=== PATIENT | female | born 1960 | race Caucasian/White ===

== ENCOUNTER 2024-04-06 19:40 | Inpatient (IN) | payer MEDICARE ==
[~2024-04-06] VITALS: Ht 170.2 cm; Wt 73.5 kg
[2024-04-06 20:15] LABS: BASOPHILS % (AUTO) 0.1 % (0.0-2.0); EOSINOPHILS % (AUTO) 0.2 % (0.0-7.0); HEMATOCRIT 45.8 % (31.2-41.9); HEMOGLOBIN 15.4 g/dL (10.9-14.3); LYMPHOCYTES # (AUTO) 0.7 K/uL (0.8-4.8); LYMPHOCYTES % (AUTO) 4.9 % (20.5-51.5); MEAN CORPUSCULAR HEMOGLOBIN 28.4 uug (24.7-32.8); MEAN CORPUSCULAR HGB CONC 34 g/dL (32.3-35.6); MEAN CORPUSCULAR VOLUME 84.3 fL (75.5-95.3); MONOCYTES # (AUTO) 0.4 K/uL (0.1-1.30); MONOCYTES % (AUTO) 2.6 % (0.0-11.0); NEUTROPHILS # (AUTO) 12.6 K/uL (1.8-8.9); NEUTROPHILS % (AUTO) 92.2 % (38.5-71.5); PLATELET COUNT (AUTO) 373 K/uL (179-408); RED BLOOD CELL COUNT(AUTO) 5.43 MIL/uL (3.63-4.92); RED CELL DISTRIBUTION WIDTH 14.1 % (12.3-17.7); WHITE BLOOD COUNT (AUTO) 13.7 K/uL (3.8-11.8)
[2024-04-06 20:16] LABS: DIFFERENTIAL COMMENT 1
[2024-04-06 20:25] LABS: CREATININE 4.2 mg/dL (0.6-1.3)
[2024-04-06 20:36] LABS: BILIRUBIN,DIRECT 0.3 mg/dL (0.0-0.2); BILIRUBIN,TOTAL 0.7 mg/dL (0.2-1.0); TOTAL PROTEIN, SERUM 7.3 g/dL (6.4-8.2)
[2024-04-06] MEDS ORDERED: BUPR150T5 PO (21:28)
[2024-04-06] MEDS ORDERED: LEVO100T10 PO (21:28)
[2024-04-06] MEDS ORDERED: ATOR10TA PO (21:28)
[2024-04-06 23:08] VITALS: BP 120/70; TEMP 98.2; O2SAT 92
[2024-04-06] MEDS ORDERED: PIPERACILLIN/TAZO 4.5 GM VIAL IV ONE (23:10)
[2024-04-06] MEDS: PIPERACILLIN SODIUM/TAZOBACTAM 4.5 G in IV DEXTROSE 5% 50 ML IV ONE (23:25)
[2024-04-07] VITALS (27 sets, daily range): BP systolic 79–131; BP diastolic 55–83; TEMP 98–99.5; O2SAT 91–99
[2024-04-07] MEDS ORDERED: REMEDY ESSENTIAL ZINC PASTE 113 GM TP PRN (01:15)
[2024-04-07] MEDS ORDERED: ZOLPIDEM 5 MG TABLET PO PRN (01:15)
[2024-04-07] MEDS ORDERED: ONDANSETRON 4 MG/2 ML VIAL IV PRN (01:15)
[2024-04-07] MEDS ORDERED: MAGNESIUM HYDROXIDE 30 ML LIQUID UDC PO PRN (01:15)
[2024-04-07] MEDS ORDERED: ENOXAPARIN SODIUM 40 MG/0.4 ML DISP.SYRIN SQ SCH (01:15)
[2024-04-07] MEDS: IV NS 1000 ML 1,000 ML IV PRN (01:44)
[2024-04-07] MEDS ORDERED: PIPERACILLIN SODIUM/TAZOBACTAM 3.375 G in IV DEXTROSE 5% 50 ML IV SCH (06:00)
[2024-04-07 07:31] LABS: BASOPHILS % (AUTO) 0.2 % (0.0-2.0); EOSINOPHILS % (AUTO) 0.2 % (0.0-7.0); HEMATOCRIT 43.4 % (31.2-41.9); HEMOGLOBIN 14.5 g/dL (10.9-14.3); LYMPHOCYTES # (AUTO) 0.5 K/uL (0.8-4.8); LYMPHOCYTES % (AUTO) 4.2 % (20.5-51.5); MEAN CORPUSCULAR HEMOGLOBIN 28.2 uug (24.7-32.8); MEAN CORPUSCULAR HGB CONC 33 g/dL (32.3-35.6); MEAN CORPUSCULAR VOLUME 84.3 fL (75.5-95.3); MONOCYTES # (AUTO) 0.4 K/uL (0.1-1.30); NEUTROPHILS # (AUTO) 11.6 K/uL (1.8-8.9); NEUTROPHILS % (AUTO) 92.4 % (38.5-71.5); PLATELET COUNT (AUTO) 341 K/uL (179-408); RED BLOOD CELL COUNT(AUTO) 5.14 MIL/uL (3.63-4.92); RED CELL DISTRIBUTION WIDTH 14.2 % (12.3-17.7); WHITE BLOOD COUNT (AUTO) 12.5 K/uL (3.8-11.8)
[2024-04-07] MEDS ORDERED: ALBUMIN HUMAN 5% 500 ML ONE (07:33)
[2024-04-07] MEDS ORDERED: KETAMINE HCL 500 MG/5 ML VIAL ONE (07:34)
[2024-04-07] MEDS ORDERED: MIDAZOLAM HCL 2 MG/2 ML VIAL ONE (07:34)
[2024-04-07] MEDS ORDERED: FENTANYL CITRATE 100 MCG/2 ML AMPUL ONE (07:34)
[2024-04-07] MEDS ORDERED: ROCURONIUM BROMIDE 50 MG/5 ML VIAL ONE ×2 (07:35)
[2024-04-07 07:40] LABS: DIFFERENTIAL COMMENT 1
[2024-04-07] MEDS ORDERED: VASOPRESSIN 20 UNIT/ML VIAL ONE (07:42)
[2024-04-07 07:51] LABS: ALBUMIN 1.7 g/dL (3.4-5.0); BILIRUBIN,DIRECT 0.2 mg/dL (0.0-0.2); BILIRUBIN,TOTAL 0.6 mg/dL (0.2-1.0); CALCIUM 8.3 mg/dL (8.5-10.1); CREATININE 3.7 mg/dL (0.6-1.3); MAGNESIUM 3.7 mg/dL (1.8-2.4); POTASSIUM 3.8 mmol/L (3.5-5.1); TOTAL PROTEIN, SERUM 6.5 g/dL (6.4-8.2)
[2024-04-07 07:56] LABS: THYROID STIMULATING HORMONE 0.659 mIU/mL (0.358-3.740)
[2024-04-07] MEDS ORDERED: SEVOFLURANE 250 ML BOTTLE ONE (08:02)
[2024-04-07 08:17] LABS: PHOSPHOROUS 8.2 mg/dL (2.5-4.9)
[2024-04-07] MEDS ORDERED: BUPIVACAINE/EPI PF 0.5% 10 ML VIAL ONE (08:23)
[2024-04-07] MEDS ORDERED: LIDOCAINE HCL 1% 20 ML VIAL ONE (08:23)
[2024-04-07] MEDS ORDERED: PROPOFOL 200 MG/20 ML BOTTLE ONE (08:25)
[2024-04-07] MEDS: PANTOPRAZOLE SODIUM 40 MG VIAL IV SCH (09:00)
[2024-04-07] MEDS: PIPERACILLIN SODIUM/TAZOBACTAM 3.375 G in IV DEXTROSE 5% 100 ML IV SCH (09:00)
[2024-04-07] MEDS ORDERED: ALBUMIN HUMAN 5% 250 ML ONE (12:08)
[2024-04-07] MEDS ORDERED: HYDROMORPHONE 1 MG/1 ML DISP.SYRIN ONE (12:54)
[2024-04-07] MEDS: FENTANYL CITRATE 100 MCG/2 ML AMPUL IV ONE (16:13)
[2024-04-07] MEDS: MORPHINE SULFATE 4 MG/1 ML DISP.SYRIN IM PRN (17:58)
[2024-04-07] MEDS: NOREPINEPHRINE BITARTRATE 8 MG in IV NORMAL SALINE 242 ML IV PRN (18:40)
[2024-04-07 22:12] LABS: HEMOGLOBIN 13.9 g/dL (10.9-14.3)
[2024-04-07 22:21] LABS: CREATININE 4.6 mg/dL (0.6-1.3); MAGNESIUM 3.5 mg/dL (1.8-2.4); POTASSIUM 4.7 mmol/L (3.5-5.1)
[2024-04-08] VITALS (69 sets, daily range): BP systolic 66–125; BP diastolic 43–72; TEMP 97.5–101.1; O2SAT 95–99
[2024-04-08] MEDS ORDERED: ENOXAPARIN SODIUM 40 MG/0.4 ML DISP.SYRIN SQ SCH (07:00)
[2024-04-08] MEDS: LEVOTHYROXINE SODIUM 100 MCG TABLET PO SCH (07:00)
[2024-04-08] MEDS: HEPARIN SODIUM,PORCINE 5,000 UNITS/ML VIAL SQ SCH (09:00)
[2024-04-08] MEDS ORDERED: buPROPion SR 150 MG TABLET.SA PO SCH (09:00)
[2024-04-08 10:08] LABS: BASOPHILS % (AUTO) 0.2 % (0.0-2.0); HEMATOCRIT 39.3 % (31.2-41.9); HEMOGLOBIN 12.9 g/dL (10.9-14.3); LYMPHOCYTES # (AUTO) 0.4 K/uL (0.8-4.8); LYMPHOCYTES % (AUTO) 1.7 % (20.5-51.5); MEAN CORPUSCULAR HEMOGLOBIN 28.2 uug (24.7-32.8); MEAN CORPUSCULAR HGB CONC 33 g/dL (32.3-35.6); MONOCYTES # (AUTO) 0.7 K/uL (0.1-1.30); MONOCYTES % (AUTO) 2.7 % (0.0-11.0); NEUTROPHILS # (AUTO) 23.5 K/uL (1.8-8.9); NEUTROPHILS % (AUTO) 95.4 % (38.5-71.5); PLATELET COUNT (AUTO) 338 K/uL (179-408); RED BLOOD CELL COUNT(AUTO) 4.58 MIL/uL (3.63-4.92); RED CELL DISTRIBUTION WIDTH 14.5 % (12.3-17.7); WHITE BLOOD COUNT (AUTO) 24.6 K/uL (3.8-11.8)
[2024-04-08] MEDS ORDERED: MORPHINE SULFATE 4 MG/1 ML DISP.SYRIN IM PRN (10:45)
[2024-04-08 11:32] LABS: ALBUMIN 1.7 g/dL (3.4-5.0); BILIRUBIN,TOTAL 0.6 mg/dL (0.2-1.0); CALCIUM 6.9 mg/dL (8.5-10.1); CREATININE 5.4 mg/dL (0.6-1.3); POTASSIUM 4.9 mmol/L (3.5-5.1); TOTAL PROTEIN, SERUM 5.3 g/dL (6.4-8.2)
[2024-04-08 12:25] LABS: DIFFERENTIAL COMMENT 1
[2024-04-08] MEDS ORDERED: BUPR-53 PO (12:28)
[2024-04-08] MEDS: NOREPINEPHRINE BITARTRATE 32 MG in IV NORMAL SALINE 218 ML IV PRN (15:40)
[2024-04-08] MEDS: ATORVASTATIN 10 MG TABLET PO SCH (21:00)
[2024-04-09] VITALS (80 sets, daily range): BP systolic 79–128; BP diastolic 53–84; TEMP 97.2–98.9; O2SAT 79–100
[2024-04-09] MEDS: MORPHINE SULFATE 2 MG/1 ML DISP.SYRIN IV PRN (01:58)
[2024-04-09 05:11] LABS: BASOPHILS # (AUTO) 0.1 K/UL (0.0-0.2); BASOPHILS % (AUTO) 0.4 % (0.0-2.0); EOSINOPHILS % (AUTO) 0.1 % (0.0-7.0); HEMATOCRIT 31.6 % (31.2-41.9); HEMOGLOBIN 10.2 g/dL (10.9-14.3); LYMPHOCYTES # (AUTO) 0.6 K/uL (0.8-4.8); LYMPHOCYTES % (AUTO) 3.7 % (20.5-51.5); MEAN CORPUSCULAR HGB CONC 32 g/dL (32.3-35.6); MEAN CORPUSCULAR VOLUME 86.3 fL (75.5-95.3); MONOCYTES # (AUTO) 0.6 K/uL (0.1-1.30); MONOCYTES % (AUTO) 3.8 % (0.0-11.0); PLATELET COUNT (AUTO) 216 K/uL (179-408); RED BLOOD CELL COUNT(AUTO) 3.66 MIL/uL (3.63-4.92); WHITE BLOOD COUNT (AUTO) 16.2 K/uL (3.8-11.8)
[2024-04-09 05:46] LABS: BILIRUBIN,TOTAL 0.4 mg/dL (0.2-1.0); CALCIUM 7.1 mg/dL (8.5-10.1); CREATININE 6.2 mg/dL (0.6-1.3); MAGNESIUM 3.8 mg/dL (1.8-2.4); POTASSIUM 5.1 mmol/L (3.5-5.1); TOTAL PROTEIN, SERUM 5.3 g/dL (6.4-8.2)
[2024-04-09 05:49] LABS: ALBUMIN 1.3 g/dL (3.4-5.0); PHOSPHOROUS 11.5 mg/dL (2.5-4.9)
[2024-04-09 06:07] LABS: DIFFERENTIAL COMMENT 1
[2024-04-09] MEDS: buPROPion XL 150 MG TAB.SR.24H PO SCH (08:43)
[2024-04-09] MEDS ORDERED: buPROPion SR 150 MG TABLET.SA PO SCH (09:00)
[2024-04-09] MEDS ORDERED: NOREPINEPHRINE BITARTRATE 8 MG in IV NORMAL SALINE 242 ML IV PRN (13:30)
[2024-04-09] MEDS: SODIUM HYPOCHLORITE 0.25% (HALF STRENGTH) 480 ML BOTTLE TOP SCH (19:13)
[2024-04-09] MEDS: PIPERACILLIN/TAZO 2.25 G in IV DEXTROSE 5% 50 ML IV SCH (21:24)
[2024-04-10] VITALS (42 sets, daily range): BP systolic 86–144; BP diastolic 49–81; TEMP 98.2–98.7; O2SAT 89–99
[2024-04-10 12:12] LABS: HEMATOCRIT 28.9 % (31.2-41.9); HEMOGLOBIN 9.5 g/dL (10.9-14.3); LYMPHOCYTES % (AUTO) 4.5 % (20.5-51.5); MEAN CORPUSCULAR HEMOGLOBIN 27.9 uug (24.7-32.8); MEAN CORPUSCULAR HGB CONC 33 g/dL (32.3-35.6); MEAN CORPUSCULAR VOLUME 85.1 fL (75.5-95.3); NEUTROPHILS % (AUTO) 92.2 % (38.5-71.5); PLATELET COUNT (AUTO) 184 K/uL (179-408); RED CELL DISTRIBUTION WIDTH 14.5 % (12.3-17.7)
[2024-04-10 12:13] LABS: EOSINOPHILS % (AUTO) 0.1 % (0.0-7.0); LYMPHOCYTES # (AUTO) 0.6 K/uL (0.8-4.8); MONOCYTES # (AUTO) 0.4 K/uL (0.1-1.30); MONOCYTES % (AUTO) 3.2 % (0.0-11.0)
[2024-04-10 12:57] LABS: DIFFERENTIAL COMMENT 1
[2024-04-10] MEDS: LEVOTHYROXINE SODIUM 100 MCG VIAL IV SCH (13:00)
[2024-04-10 13:07] LABS: HEPATITIS B SURFACE AB, QUAL Non Reactive (.); HEPATITIS B SURFACE AG Negative (Negative)
[2024-04-10 16:43] LABS: CALCIUM 7.3 mg/dL (8.5-10.1); CREATININE 3.2 mg/dL (0.6-1.3); MAGNESIUM 2.7 mg/dL (1.8-2.4); PHOSPHOROUS 5.9 mg/dL (2.5-4.9); POTASSIUM 3.6 mmol/L (3.5-5.1)
[2024-04-10] MEDS ORDERED: NOREPINEPHRINE BITARTRATE 4 MG/4 ML VIAL IV ONE (20:35)
[2024-04-11] VITALS (39 sets, daily range): BP systolic 95–131; BP diastolic 52–74; TEMP 97.6–99.1; O2SAT 93–100
[2024-04-11 05:12] LABS: BASOPHILS % (AUTO) 0.1 % (0.0-2.0); EOSINOPHILS % (AUTO) 0.2 % (0.0-7.0); HEMATOCRIT 30.8 % (31.2-41.9); HEMOGLOBIN 10.3 g/dL (10.9-14.3); LYMPHOCYTES # (AUTO) 0.5 K/uL (0.8-4.8); LYMPHOCYTES % (AUTO) 4.1 % (20.5-51.5); MEAN CORPUSCULAR HEMOGLOBIN 28.4 uug (24.7-32.8); MEAN CORPUSCULAR HGB CONC 33 g/dL (32.3-35.6); MEAN CORPUSCULAR VOLUME 84.8 fL (75.5-95.3); MONOCYTES # (AUTO) 0.5 K/uL (0.1-1.30); MONOCYTES % (AUTO) 4.2 % (0.0-11.0); NEUTROPHILS # (AUTO) 11.9 K/uL (1.8-8.9); NEUTROPHILS % (AUTO) 91.4 % (38.5-71.5); PLATELET COUNT (AUTO) 159 K/uL (179-408); RED BLOOD CELL COUNT(AUTO) 3.63 MIL/uL (3.63-4.92); RED CELL DISTRIBUTION WIDTH 14.8 % (12.3-17.7)
[2024-04-11 05:16] LABS: CALCIUM 8.2 mg/dL (8.5-10.1); CREATININE 2.7 mg/dL (0.6-1.3); MAGNESIUM 2.3 mg/dL (1.8-2.4); PHOSPHOROUS 3.8 mg/dL (2.5-4.9); POTASSIUM 3.7 mmol/L (3.5-5.1)
[2024-04-11 05:19] LABS: DIFFERENTIAL COMMENT 1
[2024-04-11] MEDS: MORPHINE SULFATE 2 MG/1 ML DISP.SYRIN IV PRN (17:58)
[2024-04-12] VITALS (19 sets, daily range): BP systolic 92–132; BP diastolic 54–82; TEMP 98.8–100.1; O2SAT 90–98
[2024-04-12 05:05] LABS: BASOPHILS % (AUTO) 0.1 % (0.0-2.0); EOSINOPHILS % (AUTO) 0.1 % (0.0-7.0); HEMATOCRIT 29.3 % (31.2-41.9); HEMOGLOBIN 9.6 g/dL (10.9-14.3); LYMPHOCYTES # (AUTO) 0.4 K/uL (0.8-4.8); LYMPHOCYTES % (AUTO) 3.5 % (20.5-51.5); MEAN CORPUSCULAR HGB CONC 33 g/dL (32.3-35.6); MONOCYTES # (AUTO) 0.4 K/uL (0.1-1.30); MONOCYTES % (AUTO) 3.9 % (0.0-11.0); NEUTROPHILS # (AUTO) 10.4 K/uL (1.8-8.9); NEUTROPHILS % (AUTO) 92.4 % (38.5-71.5); PLATELET COUNT (AUTO) 143 K/uL (179-408); RED BLOOD CELL COUNT(AUTO) 3.41 MIL/uL (3.63-4.92); RED CELL DISTRIBUTION WIDTH 14.5 % (12.3-17.7); WHITE BLOOD COUNT (AUTO) 11.2 K/uL (3.8-11.8)
[2024-04-12 05:37] LABS: CALCIUM 7.5 mg/dL (8.5-10.1); CREATININE 3.8 mg/dL (0.6-1.3); MAGNESIUM 2.5 mg/dL (1.8-2.4); PHOSPHOROUS 4.2 mg/dL (2.5-4.9); POTASSIUM 3.3 mmol/L (3.5-5.1)
[2024-04-12 05:46] LABS: DIFFERENTIAL COMMENT 1
[2024-04-12] MEDS: OLANZAPINE 10 MG VIAL IM ONE (12:06)
[2024-04-12] MEDS: OLANZAPINE 10 MG VIAL IM SCH (20:19)
[2024-04-12] MEDS: ACETAMINOPHEN 650 MG SUPP.RECT RC PRN (23:24)
[2024-04-12] MEDS: MORPHINE SULFATE 2 MG/1 ML DISP.SYRIN IV PRN (23:32)
[2024-04-13] VITALS (46 sets, daily range): BP systolic 81–131; BP diastolic 53–73; TEMP 98.3–98.8; O2SAT 92–99
[2024-04-13 05:08] LABS: BASOPHILS % (AUTO) 0.1 % (0.0-2.0); EOSINOPHILS % (AUTO) 0.3 % (0.0-7.0); HEMATOCRIT 30.6 % (31.2-41.9); HEMOGLOBIN 9.9 g/dL (10.9-14.3); LYMPHOCYTES # (AUTO) 0.5 K/uL (0.8-4.8); LYMPHOCYTES % (AUTO) 4.9 % (20.5-51.5); MEAN CORPUSCULAR HEMOGLOBIN 27.7 uug (24.7-32.8); MEAN CORPUSCULAR HGB CONC 32 g/dL (32.3-35.6); MEAN CORPUSCULAR VOLUME 85.9 fL (75.5-95.3); MONOCYTES # (AUTO) 0.6 K/uL (0.1-1.30); MONOCYTES % (AUTO) 5.5 % (0.0-11.0); NEUTROPHILS # (AUTO) 9.6 K/uL (1.8-8.9); NEUTROPHILS % (AUTO) 89.2 % (38.5-71.5); PLATELET COUNT (AUTO) 193 K/uL (179-408); RED BLOOD CELL COUNT(AUTO) 3.56 MIL/uL (3.63-4.92); RED CELL DISTRIBUTION WIDTH 14.6 % (12.3-17.7); WHITE BLOOD COUNT (AUTO) 10.8 K/uL (3.8-11.8)
[2024-04-13 05:10] LABS: DIFFERENTIAL COMMENT 1
[2024-04-13 05:29] LABS: CALCIUM 8.5 mg/dL (8.5-10.1); CREATININE 4.1 mg/dL (0.6-1.3); MAGNESIUM 2.7 mg/dL (1.8-2.4); PHOSPHOROUS 4.9 mg/dL (2.5-4.9); POTASSIUM 3.3 mmol/L (3.5-5.1)
[2024-04-14] VITALS (39 sets, daily range): BP systolic 87–117; BP diastolic 52–77; TEMP 98.2–99.5; O2SAT 88–98
[2024-04-14 04:58] LABS: BASOPHILS % (AUTO) 0.2 % (0.0-2.0); EOSINOPHILS % (AUTO) 0.2 % (0.0-7.0); HEMATOCRIT 29.6 % (31.2-41.9); HEMOGLOBIN 9.5 g/dL (10.9-14.3); LYMPHOCYTES # (AUTO) 0.6 K/uL (0.8-4.8); LYMPHOCYTES % (AUTO) 5.8 % (20.5-51.5); MEAN CORPUSCULAR HEMOGLOBIN 27.6 uug (24.7-32.8); MEAN CORPUSCULAR HGB CONC 32 g/dL (32.3-35.6); MONOCYTES # (AUTO) 0.7 K/uL (0.1-1.30); MONOCYTES % (AUTO) 6.3 % (0.0-11.0); NEUTROPHILS # (AUTO) 9.4 K/uL (1.8-8.9); NEUTROPHILS % (AUTO) 87.5 % (38.5-71.5); PLATELET COUNT (AUTO) 224 K/uL (179-408); RED BLOOD CELL COUNT(AUTO) 3.44 MIL/uL (3.63-4.92); RED CELL DISTRIBUTION WIDTH 14.4 % (12.3-17.7); WHITE BLOOD COUNT (AUTO) 10.7 K/uL (3.8-11.8)
[2024-04-14 05:08] LABS: DIFFERENTIAL COMMENT 1
[2024-04-14 05:10] LABS: CALCIUM 7.4 mg/dL (8.5-10.1); CREATININE 2.4 mg/dL (0.6-1.3); MAGNESIUM 1.9 mg/dL (1.8-2.4); PHOSPHOROUS 3.4 mg/dL (2.5-4.9); POTASSIUM 2.9 mmol/L (3.5-5.1)
[2024-04-14] MEDS: IV D5W 1000ML 1,000 ML IV SCH (06:14)
[2024-04-14] MEDS: MAGNESIUM SULFATE/D5W 100 ML IV SCH (06:24)
[2024-04-14] MEDS: POTASSIUM CHLORIDE 50 ML IV SCH (08:38)
[2024-04-15] VITALS (25 sets, daily range): BP systolic 79–118; BP diastolic 56–84; TEMP 97.9–98.9; O2SAT 90–100
[2024-04-15 05:03] LABS: BASOPHILS % (AUTO) 0.2 % (0.0-2.0); EOSINOPHILS % (AUTO) 0.3 % (0.0-7.0); HEMOGLOBIN 10.6 g/dL (10.9-14.3); LYMPHOCYTES # (AUTO) 0.8 K/uL (0.8-4.8); LYMPHOCYTES % (AUTO) 7.8 % (20.5-51.5); MEAN CORPUSCULAR HEMOGLOBIN 28.2 uug (24.7-32.8); MEAN CORPUSCULAR HGB CONC 33 g/dL (32.3-35.6); MEAN CORPUSCULAR VOLUME 84.9 fL (75.5-95.3); MONOCYTES # (AUTO) 0.7 K/uL (0.1-1.30); NEUTROPHILS # (AUTO) 8.6 K/uL (1.8-8.9); NEUTROPHILS % (AUTO) 84.7 % (38.5-71.5); PLATELET COUNT (AUTO) 270 K/uL (179-408); RED BLOOD CELL COUNT(AUTO) 3.77 MIL/uL (3.63-4.92); WHITE BLOOD COUNT (AUTO) 10.2 K/uL (3.8-11.8)
[2024-04-15 05:11] LABS: DIFFERENTIAL COMMENT 1
[2024-04-15 05:18] LABS: CALCIUM 8.1 mg/dL (8.5-10.1); CREATININE 2.9 mg/dL (0.6-1.3); MAGNESIUM 2.1 mg/dL (1.8-2.4); PHOSPHOROUS 3.1 mg/dL (2.5-4.9); POTASSIUM 3.2 mmol/L (3.5-5.1)
[2024-04-15] MEDS ORDERED: OLANZAPINE 10 MG VIAL IM ONE (11:00)
[2024-04-15 12:10] LABS: BASOPHILS % (AUTO) 0.4 % (0.0-2.0); EOSINOPHILS % (AUTO) 0.3 % (0.0-7.0); HEMATOCRIT 28.6 % (31.2-41.9); HEMOGLOBIN 9.3 g/dL (10.9-14.3); LYMPHOCYTES # (AUTO) 0.7 K/uL (0.8-4.8); LYMPHOCYTES % (AUTO) 7.2 % (20.5-51.5); MEAN CORPUSCULAR HEMOGLOBIN 27.9 uug (24.7-32.8); MEAN CORPUSCULAR HGB CONC 33 g/dL (32.3-35.6); MEAN CORPUSCULAR VOLUME 85.9 fL (75.5-95.3); MONOCYTES # (AUTO) 0.6 K/uL (0.1-1.30); MONOCYTES % (AUTO) 6.9 % (0.0-11.0); NEUTROPHILS # (AUTO) 7.8 K/uL (1.8-8.9); NEUTROPHILS % (AUTO) 85.2 % (38.5-71.5); PLATELET COUNT (AUTO) 257 K/uL (179-408); RED BLOOD CELL COUNT(AUTO) 3.32 MIL/uL (3.63-4.92); RED CELL DISTRIBUTION WIDTH 14.1 % (12.3-17.7); WHITE BLOOD COUNT (AUTO) 9.2 K/uL (3.8-11.8)
[2024-04-15 12:13] LABS: DIFFERENTIAL COMMENT 1
[2024-04-15] MEDS ORDERED: DIATR MEGLU/DIATRIZOATE SODIUM 120 ML BOTTLE ONE (12:31)
[2024-04-15] MEDS: PANTOPRAZOLE SODIUM 40 MG VIAL IV SCH (21:22)
[2024-04-16] VITALS (25 sets, daily range): BP systolic 91–130; BP diastolic 57–80; TEMP 97.5–98.9; O2SAT 91–100
[2024-04-16 05:12] LABS: BASOPHILS # (AUTO) 0.1 K/UL (0.0-0.2); BASOPHILS % (AUTO) 1.1 % (0.0-2.0); EOSINOPHILS % (AUTO) 0.3 % (0.0-7.0); HEMATOCRIT 31.8 % (31.2-41.9); HEMOGLOBIN 10.1 g/dL (10.9-14.3); LYMPHOCYTES # (AUTO) 0.9 K/uL (0.8-4.8); LYMPHOCYTES % (AUTO) 8.5 % (20.5-51.5); MEAN CORPUSCULAR HEMOGLOBIN 27.5 uug (24.7-32.8); MEAN CORPUSCULAR HGB CONC 32 g/dL (32.3-35.6); MEAN CORPUSCULAR VOLUME 86.3 fL (75.5-95.3); MONOCYTES # (AUTO) 0.8 K/uL (0.1-1.30); MONOCYTES % (AUTO) 7.4 % (0.0-11.0); NEUTROPHILS # (AUTO) 9.2 K/uL (1.8-8.9); NEUTROPHILS % (AUTO) 82.7 % (38.5-71.5); PLATELET COUNT (AUTO) 257 K/uL (179-408); RED BLOOD CELL COUNT(AUTO) 3.69 MIL/uL (3.63-4.92); RED CELL DISTRIBUTION WIDTH 14.1 % (12.3-17.7); WHITE BLOOD COUNT (AUTO) 11.1 K/uL (3.8-11.8)
[2024-04-16 05:19] LABS: DIFFERENTIAL COMMENT 1
[2024-04-16 05:25] LABS: CALCIUM 8.4 mg/dL (8.5-10.1); CREATININE 2.9 mg/dL (0.6-1.3); MAGNESIUM 2.1 mg/dL (1.8-2.4); PHOSPHOROUS 4.2 mg/dL (2.5-4.9)
[2024-04-16 05:29] LABS: POTASSIUM 2.8 mmol/L (3.5-5.1)
[2024-04-16] MEDS: POTASSIUM CHLORIDE 50 ML IV SCH (10:04)
[2024-04-16] MEDS: MORPHINE SULFATE 2 MG/1 ML DISP.SYRIN IV PRN (11:58)
[2024-04-16] MEDS: LORAZEPAM 2 MG/1 ML VIAL IV ONE (15:58)
[2024-04-16] MEDS: NYSTATIN SUSPENSION 5 ML LIQUID UDC PO SCH (18:10)
[2024-04-16] MEDS: HALOPERIDOL LACTATE 5 MG/1 ML VIAL IM ONE (18:29)
[2024-04-17] VITALS (28 sets, daily range): BP systolic 86–135; BP diastolic 41–93; TEMP 97.4–99.5; O2SAT 96–100
[2024-04-17 05:08] LABS: BASOPHILS # (AUTO) 0.1 K/UL (0.0-0.2); BASOPHILS % (AUTO) 0.8 % (0.0-2.0); EOSINOPHILS % (AUTO) 0.5 % (0.0-7.0); HEMATOCRIT 30.2 % (31.2-41.9); HEMOGLOBIN 10.2 g/dL (10.9-14.3); LYMPHOCYTES # (AUTO) 1.1 K/uL (0.8-4.8); LYMPHOCYTES % (AUTO) 10.7 % (20.5-51.5); MEAN CORPUSCULAR HEMOGLOBIN 28.6 uug (24.7-32.8); MEAN CORPUSCULAR HGB CONC 34 g/dL (32.3-35.6); MEAN CORPUSCULAR VOLUME 84.9 fL (75.5-95.3); MONOCYTES # (AUTO) 0.8 K/uL (0.1-1.30); MONOCYTES % (AUTO) 8.1 % (0.0-11.0); NEUTROPHILS # (AUTO) 8.1 K/uL (1.8-8.9); NEUTROPHILS % (AUTO) 79.9 % (38.5-71.5); PLATELET COUNT (AUTO) 351 K/uL (179-408); RED BLOOD CELL COUNT(AUTO) 3.56 MIL/uL (3.63-4.92); RED CELL DISTRIBUTION WIDTH 13.9 % (12.3-17.7); WHITE BLOOD COUNT (AUTO) 10.1 K/uL (3.8-11.8)
[2024-04-17 05:19] LABS: DIFFERENTIAL COMMENT 1
[2024-04-17 05:24] LABS: CALCIUM 8.6 mg/dL (8.5-10.1); CREATININE 3.1 mg/dL (0.6-1.3); MAGNESIUM 1.8 mg/dL (1.8-2.4); PHOSPHOROUS 3.7 mg/dL (2.5-4.9); POTASSIUM 3.1 mmol/L (3.5-5.1)
[2024-04-17] MEDS: buPROPion XL 150 MG TAB.SR.24H PO SCH (10:28)
[2024-04-17] MEDS: SODIUM HYPOCHLORITE 0.25% (HALF STRENGTH) 480 ML BOTTLE TOP SCH (20:27)
[2024-04-18] VITALS (23 sets, daily range): BP systolic 98–125; BP diastolic 58–105; TEMP 97.6–99.5; O2SAT 83–99
[2024-04-18 08:58] LABS: BASOPHILS % (AUTO) 0.5 % (0.0-2.0); EOSINOPHILS % (AUTO) 0.3 % (0.0-7.0); HEMATOCRIT 27.4 % (31.2-41.9); LYMPHOCYTES # (AUTO) 0.8 K/uL (0.8-4.8); LYMPHOCYTES % (AUTO) 8.9 % (20.5-51.5); MEAN CORPUSCULAR HEMOGLOBIN 27.8 uug (24.7-32.8); MEAN CORPUSCULAR HGB CONC 33 g/dL (32.3-35.6); MONOCYTES # (AUTO) 0.7 K/uL (0.1-1.30); MONOCYTES % (AUTO) 7.7 % (0.0-11.0); NEUTROPHILS # (AUTO) 7.5 K/uL (1.8-8.9); NEUTROPHILS % (AUTO) 82.6 % (38.5-71.5); PLATELET COUNT (AUTO) 376 K/uL (179-408); RED BLOOD CELL COUNT(AUTO) 3.22 MIL/uL (3.63-4.92)
[2024-04-18] MEDS ORDERED: LEVOTHYROXINE SODIUM 100 MCG VIAL IV SCH (09:00)
[2024-04-18 09:06] LABS: DIFFERENTIAL COMMENT 1
[2024-04-18 09:11] LABS: CALCIUM 8.2 mg/dL (8.5-10.1); CREATININE 2.4 mg/dL (0.6-1.3); MAGNESIUM 1.6 mg/dL (1.8-2.4); PHOSPHOROUS 3.9 mg/dL (2.5-4.9)
[2024-04-18 09:17] LABS: POTASSIUM 2.7 mmol/L (3.5-5.1)
[2024-04-18] MEDS ORDERED: LEVOTHYROXINE SODIUM 50 MCG TABLET PO SCH (09:29)
[2024-04-18] MEDS: LEVOTHYROXINE SODIUM 100 MCG TABLET PO SCH (10:16)
[2024-04-19] VITALS (28 sets, daily range): BP systolic 85–143; BP diastolic 45–74; TEMP 97.9–98.3; O2SAT 92–99
[2024-04-19 08:40] LABS: CALCIUM 8.6 mg/dL (8.5-10.1); CREATININE 1.8 mg/dL (0.6-1.3); POTASSIUM 3.4 mmol/L (3.5-5.1)
[2024-04-19] MEDS: ACETAMINOPHEN 325 MG TABLET PO PRN (15:40)
[2024-04-20] VITALS (8 sets, daily range): BP systolic 89–137; BP diastolic 61–106; TEMP 98–98.6; O2SAT 94–99
[2024-04-21 08:00] VITALS: BP 101/61; TEMP 98.4
[2024-04-21 08:46] LABS: BASOPHILS # (AUTO) 0.1 K/UL (0.0-0.2); BASOPHILS % (AUTO) 1.2 % (0.0-2.0); EOSINOPHILS % (AUTO) 0.2 % (0.0-7.0); HEMATOCRIT 30.8 % (31.2-41.9); HEMOGLOBIN 10.3 g/dL (10.9-14.3); LYMPHOCYTES # (AUTO) 0.8 K/uL (0.8-4.8); LYMPHOCYTES % (AUTO) 8.6 % (20.5-51.5); MEAN CORPUSCULAR HEMOGLOBIN 28.5 uug (24.7-32.8); MEAN CORPUSCULAR HGB CONC 34 g/dL (32.3-35.6); MEAN CORPUSCULAR VOLUME 84.9 fL (75.5-95.3); MONOCYTES # (AUTO) 0.7 K/uL (0.1-1.30); NEUTROPHILS # (AUTO) 7.5 K/uL (1.8-8.9); PLATELET COUNT (AUTO) 450 K/uL (179-408); RED BLOOD CELL COUNT(AUTO) 3.62 MIL/uL (3.63-4.92); RED CELL DISTRIBUTION WIDTH 14.1 % (12.3-17.7); WHITE BLOOD COUNT (AUTO) 9.1 K/uL (3.8-11.8)
[2024-04-21 09:02] LABS: CALCIUM 9.2 mg/dL (8.5-10.1); CREATININE 2.6 mg/dL (0.6-1.3); MAGNESIUM 1.7 mg/dL (1.8-2.4); PHOSPHOROUS 2.8 mg/dL (2.5-4.9); POTASSIUM 3.2 mmol/L (3.5-5.1)
[2024-04-21 09:11] LABS: DIFFERENTIAL COMMENT 1
[2024-04-21 09:25] VITALS: O2SAT 97
[2024-04-21] MEDS: PIPERACILLIN IV SCH (09:29)
[2024-04-21] MEDS: DEXTROSE 5% IV SCH (09:29)
[2024-04-21] MEDS: TAZO IV SCH (09:29)
[2024-04-21 12:17] VITALS: BP 102/60; TEMP 97.7
[2024-04-21] MEDS ORDERED: DIATR MEGLU/DIATRIZOATE SODIUM 30 ML BOTTLE ONE (14:04)
[2024-04-21 14:50] VITALS: BP 119/74; TEMP 97.5
[2024-04-21] MEDS ORDERED: SWABABLE VALVE TRANSFER SET EA MC ONE ×2 (15:55→17:01)
[2024-04-21] MEDS ORDERED: IV NORMAL SALINE 250 ML IV ONE ×2 (15:56→17:01)
[2024-04-21] MEDS ORDERED: IOHEXOL 300MG/ML 100 ML INFUS..BTL ONE ×2 (16:42→17:01)
[2024-04-21 19:43] VITALS: BP 112/65; TEMP 98.2; O2SAT 97
[2024-04-21 20:45] VITALS: O2SAT 97
[2024-04-22 05:40] VITALS: BP 98/64; TEMP 98.3; O2SAT 95
[2024-04-22 07:49] VITALS: BP 113/75; TEMP 98.2; O2SAT 97
[2024-04-22 12:00] VITALS: BP 148/66; TEMP 97.2; O2SAT 96
[2024-04-22] MEDS: HALOPERIDOL LACTATE 5 MG/1 ML VIAL IM ONE (14:29)
[2024-04-22 16:00] VITALS: BP 117/76; TEMP 97.2; O2SAT 97
[2024-04-22] MEDS: ALBUMIN HUMAN 25% 100 ML IV PRN (19:39)
[2024-04-22 20:02] VITALS: BP 104/73; TEMP 99.1; O2SAT 97
[2024-04-23 06:34] VITALS: BP 100/53; TEMP 97.8; O2SAT 94
[2024-04-23 12:00] VITALS: BP 105/65; TEMP 97.7; O2SAT 96
[2024-04-23] MEDS: PIPERACILLIN/TAZO 2.25 G in IV DEXTROSE 5% 50 ML IV SCH (13:08)
[2024-04-23 15:56] VITALS: BP 125/68; TEMP 97.6; O2SAT 96
[2024-04-23 20:42] VITALS: BP 107/77; TEMP 98.2; O2SAT 96
[2024-04-24 05:20] VITALS: BP 100/65; TEMP 98.3; O2SAT 96
[2024-04-24 07:18] LABS: CALCIUM 8.1 mg/dL (8.5-10.1)
[2024-04-24 07:34] LABS: POTASSIUM 2.5 mmol/L (3.5-5.1)
[2024-04-24] MEDS: POTASSIUM CHLORIDE 50 ML IV SCH (09:04)
[2024-04-24] MEDS: ALTEPLASE 2 MG VIAL IVP ONE (09:24)
[2024-04-24 11:03] VITALS: BP 107/79; TEMP 97.4; O2SAT 98
[2024-04-24] MEDS ORDERED: POTASSIUM CHLORIDE 50 ML IV SCH (11:45)
[2024-04-24 15:02] VITALS: BP 104/71; TEMP 98.4; O2SAT 95
[2024-04-24 17:08] LABS: CALCIUM 9.1 mg/dL (8.5-10.1); CREATININE 2.3 mg/dL (0.6-1.3); POTASSIUM 3.8 mmol/L (3.5-5.1)
[2024-04-24 20:20] VITALS: O2SAT 95
[2024-04-24 20:34] VITALS: BP 118/63; TEMP 97.8; O2SAT 97
[2024-04-25] MEDS: OLANZAPINE 10 MG VIAL IM ONE ×2 (08:58→10:54)
[2024-04-25] MEDS: BENZONATATE 100 MG CAPSULE PO PRN (18:19)
[2024-04-25] MEDS: METRONIDAZOLE 500 MG TABLET PO SCH (21:20)
[2024-04-26] MEDS ORDERED: CEFTRIAXONE 2 G VIAL IM SCH (09:00)
[2024-04-26] MEDS: CEFTRIAXONE 1 G VIAL IM SCH (09:00)
[2024-04-26 16:11] VITALS: BP 101/65; TEMP 99.2; O2SAT 96
[2024-04-26 20:00] VITALS: BP 96/78; TEMP 99.6; O2SAT 96
[2024-04-26 22:25] LABS: BASOPHILS % (AUTO) 0.4 % (0.0-2.0); EOSINOPHILS # (AUTO) 0.1 K/uL (0.0-0.7); EOSINOPHILS % (AUTO) 0.7 % (0.0-7.0); HEMATOCRIT 28.9 % (31.2-41.9); HEMOGLOBIN 9.4 g/dL (10.9-14.3); LYMPHOCYTES # (AUTO) 1.4 K/uL (0.8-4.8); LYMPHOCYTES % (AUTO) 15.6 % (20.5-51.5); MEAN CORPUSCULAR HEMOGLOBIN 27.8 uug (24.7-32.8); MEAN CORPUSCULAR HGB CONC 32 g/dL (32.3-35.6); MEAN CORPUSCULAR VOLUME 85.7 fL (75.5-95.3); MONOCYTES # (AUTO) 0.7 K/uL (0.1-1.30); MONOCYTES % (AUTO) 7.7 % (0.0-11.0); NEUTROPHILS # (AUTO) 6.6 K/uL (1.8-8.9); NEUTROPHILS % (AUTO) 75.6 % (38.5-71.5); PLATELET COUNT (AUTO) 201 K/uL (179-408); RED BLOOD CELL COUNT(AUTO) 3.38 MIL/uL (3.63-4.92); WHITE BLOOD COUNT (AUTO) 8.7 K/uL (3.8-11.8)
[2024-04-26 22:31] LABS: DIFFERENTIAL COMMENT 1
[2024-04-26 22:48] LABS: BILIRUBIN,TOTAL 0.4 mg/dL (0.2-1.0); CALCIUM 9.3 mg/dL (8.5-10.1); CREATININE 1.9 mg/dL (0.6-1.3); MAGNESIUM 1.4 mg/dL (1.8-2.4); PHOSPHOROUS 3.4 mg/dL (2.5-4.9); POTASSIUM 3.6 mmol/L (3.5-5.1); TOTAL PROTEIN, SERUM 6.6 g/dL (6.4-8.2)
[2024-04-27 01:38] LABS: EOSINOPHILS % (MANUAL) 1 % (0-8); LYMPHOCYTES % (MANUAL) 22 % (20-40); METAMYELOCYTES % 5 % (0-1); MONOCYTES % (MANUAL) 8 % (2-10); NEUTROPHILS % (MANUAL) 64 % (42-75); PLATELET ESTIMATE ADEQUATE
[2024-04-27 06:00] VITALS: BP 108/71; TEMP 98; O2SAT 97
[2024-04-27 11:32] VITALS: BP 115/80; TEMP 97.5; O2SAT 99
[2024-04-27 16:00] VITALS: BP 102/70; TEMP 98.1; O2SAT 96
[2024-04-27 21:42] VITALS: BP 125/80; TEMP 98.9; O2SAT 99
[2024-04-28 06:00] VITALS: BP 110/76; TEMP 98.3; O2SAT 99
[2024-04-28 12:04] VITALS: BP 117/78; TEMP 98.5; O2SAT 99
[2024-04-28 15:46] VITALS: BP 107/74; TEMP 99.1; O2SAT 95
[2024-04-28] MEDS ORDERED: ALPRAZOLAM 0.5 MG TABLET PO PRN (17:00)
[2024-04-28] MEDS ORDERED: LIDOCAINE 4% TOPICAL 50 ML BOTTLE TP PRN (17:00)
[2024-04-28 21:00] VITALS: TEMP 98.5
[2024-04-29] MEDS ORDERED: IBUPROFEN 600 MG TABLET PO PRN (05:30)
[2024-04-29 06:54] VITALS: TEMP 97.8
[2024-04-29 07:02] LABS: CALCIUM 9.4 mg/dL (8.5-10.1); CREATININE 1.7 mg/dL (0.6-1.3); POTASSIUM 3.8 mmol/L (3.5-5.1)
[2024-04-29 10:17] LABS: BASOPHILS # (AUTO) 0.1 K/UL (0.0-0.2); BASOPHILS % (AUTO) 0.6 % (0.0-2.0); DIFFERENTIAL COMMENT 0; EOSINOPHILS # (AUTO) 0.1 K/uL (0.0-0.7); EOSINOPHILS % (AUTO) 0.7 % (0.0-7.0); HEMATOCRIT 29.1 % (31.2-41.9); HEMOGLOBIN 9.5 g/dL (10.9-14.3); LYMPHOCYTES # (AUTO) 1.1 K/uL (0.8-4.8); LYMPHOCYTES % (AUTO) 12.4 % (20.5-51.5); MEAN CORPUSCULAR HEMOGLOBIN 28.1 uug (24.7-32.8); MEAN CORPUSCULAR HGB CONC 33 g/dL (32.3-35.6); MONOCYTES # (AUTO) 0.6 K/uL (0.1-1.30); MONOCYTES % (AUTO) 6.8 % (0.0-11.0); NEUTROPHILS # (AUTO) 7.2 K/uL (1.8-8.9); NEUTROPHILS % (AUTO) 79.5 % (38.5-71.5); PLATELET COUNT (AUTO) 245 K/uL (179-408); RED BLOOD CELL COUNT(AUTO) 3.38 MIL/uL (3.63-4.92); WHITE BLOOD COUNT (AUTO) 9.1 K/uL (3.8-11.8)
[2024-04-29 11:55] VITALS: BP 126/70; TEMP 98.5; O2SAT 95
[2024-04-29 15:30] VITALS: BP 115/71; TEMP 98; O2SAT 94
[2024-04-29 17:35] LABS: BASOPHILS % (MANUAL) 0 % (0-2); EOSINOPHILS % (MANUAL) 1 % (0-8); LYMPHOCYTES % (MANUAL) 15 % (20-40); MONOCYTES % (MANUAL) 4 % (2-10); NEUTROPHILS % (MANUAL) 80 % (42-75)
[2024-04-29 20:00] VITALS: BP 115/68; TEMP 99.5; O2SAT 92
[2024-04-29] MEDS: OLANZAPINE ZYDIS 5 MG TAB.RAPDIS PO SCH (21:12)
[2024-04-29] MEDS: PREGABALIN 50 MG CAPSULE PO SCH (21:12)
[2024-04-30 06:00] VITALS: BP 114/75; TEMP 98.1; O2SAT 98
[2024-04-30 11:15] VITALS: BP 102/70; TEMP 97.6; O2SAT 98
[2024-04-30 16:04] VITALS: BP 111/84; TEMP 98.2; O2SAT 98
[2024-04-30] MEDS ORDERED: GUAIFENESIN LA 600 MG TABLET.SA PO PRN (17:00)
[2024-04-30 19:57] VITALS: BP 93/67; TEMP 98.4; O2SAT 98
== END 2024-04-30 21:25 | disposition left against medical advice (07) | DRG 853 ==
LOC: ER 19:41 → TELE3 21:29 → CCU 04-07 14:02 → TELE3 04-20 13:46 → MEDSURG3 04-22 10:05
PROVIDERS: ADMIT Nurse Practitioner Family; ATTEND Nurse Practitioner Family
PROC: 0DTL0ZZ Resection of Transverse Colon, Open Approach (ICD-10-PCS; principal; 2024-04-07)
PROC: 0D1B0Z4 Bypass Ileum to Cutaneous, Open Approach (ICD-10-PCS; 2024-04-07)
PROC: 0DBU0ZZ Excision of Omentum, Open Approach (ICD-10-PCS; 2024-04-07)
PROC: 02HV33Z Insertion of Infusion Device into Superior Vena Cava, Percutaneous Approach (ICD-10-PCS; 2024-04-08)
PROC: 06HY33Z Insertion of Infusion Device into Lower Vein, Percutaneous Approach (ICD-10-PCS; 2024-04-08)
PROC: 5A1D70Z Performance of Urinary Filtration, Intermittent, Less than 6 Hours Per Day (ICD-10-PCS; 2024-04-09)
DX: A41.9 Sepsis, unspecified organism (principal); E43 Unspecified severe protein-calorie malnutrition; J69.0 Pneumonitis due to inhalation of food and vomit; K63.1 Perforation of intestine (nontraumatic); K65.1 Peritoneal abscess; N17.0 Acute kidney failure with tubular necrosis; R65.21 Severe sepsis with septic shock; K56.609 Unspecified intestinal obstruction, unspecified as to partial versus complete obstruction; K55.9 Vascular disorder of intestine, unspecified; E87.1 Hypo-osmolality and hyponatremia; F33.2 Major depressive disorder, recurrent severe without psychotic features; R18.8 Other ascites; Z53.31 Laparoscopic surgical procedure converted to open procedure; K59.09 Other constipation; E03.9 Hypothyroidism, unspecified; E86.0 Dehydration; E83.39 Other disorders of phosphorus metabolism; E86.1 Hypovolemia; E87.6 Hypokalemia; Z91.199 Patient's noncompliance with other medical treatment and regimen due to unspecified reason; Z88.3 Allergy status to other anti-infective agents; Z88.2 Allergy status to sulfonamides; Z79.890 Hormone replacement therapy; Z79.899 Other long term (current) drug therapy; Z68.28 Body mass index [BMI] 28.0-28.9, adult; F12.90 Cannabis use, unspecified, uncomplicated; F41.9 Anxiety disorder, unspecified; K80.20 Calculus of gallbladder without cholecystitis without obstruction; Z88.1 Allergy status to other antibiotic agents; E88.09 Other disorders of plasma-protein metabolism, not elsewhere classified; I12.9 Hypertensive chronic kidney disease with stage 1 through stage 4 chronic kidney disease, or unspecified chronic kidney disease; N18.9 Chronic kidney disease, unspecified
CPT/HCPCS: 36415; 36569; 70030-TC; 70450; 71045; 74018; 74250; 76770; 83605; 83690; 83735; 84100; 84443; 84484; 85018; 85025; 85730; 86706; 87040; 87340; 90937; 93005; A4606; A4663; A6213; G0378; J0690; J0696; J1100; J1170; J1630; J1644; J2060; J2250; J2270; J2358; J2405; J2470; J2543; J2765; J2997; J3010; J3475; J3480; J3490; J7040; J7070; J7120; P9045; P9047; Q9963; Q9967